=== PATIENT | male | born 1945 | race Caucasian/White ===

== ENCOUNTER 2016-02-28 12:12 | Outpatient (RCR) | payer MEDICARE, OTHER ==
--- OUTSIDE RECORDS SUMMARY | 2015-12-03 10:58 | XMS REPORT | Continuity of Care Document ---
Author Author [facility] Organization [facility] Address Unknown Phone Unavailable Care Team Providers Care Medical Records Supervisor Name Role Phone PCP Unavailable Source Comments Some departments are not documenting in the electronic medical record. If you do not see the information that you expected, contact Release of Information in the Health Information Management department at [phone] for further assistance in locating additional records.[facility] Active Allergies and Adverse Reactions Allergen Noted Date Severity Reactions Comments Xylocaine 02/19/2015 High SEIZURES Current Medications Prescription Sig. Disp. Refills Start End Date Status Date metFORMIN (GLUCOPHAGE) Take 1,000 mg by mouth Active 1,000 mg tablet twice daily with meals. lisinopril (PRINIVIL; Take 20 mg by mouth Active ZESTRIL) 20 mg tablet daily. acitretin (SORIATANE) 25 Take 25 mg by mouth daily Active mg cap with dinner. sitaGLIPtin (JANUVIA) 100 Take 100 mg by mouth Active mg tab tablet daily. glipiZIDE (GLUCOTROL) 5 Take 5 mg by mouth twice Active mg tablet daily with meals. DOCOSAHEXANOIC ACID/EPA Take by mouth. Active (FISH OIL PO) CALCIUM CARBONATE/VITAMIN Take by mouth. Active D3 (VITAMIN D-3 PO) PSYLLIUM SEED (WITH Take by mouth. Active SUGAR) (METAMUCIL PO) ASCORBATE CALCIUM Take by mouth. Active (VITAMIN C PO) Cyanocobalamin (VITAMIN Take by mouth. Active B-12) 2,000 mcg TbER naproxen (NAPROSYN) 250 Take 250 mg by mouth Active mg tablet twice daily with meals. Active Problems Problem Noted Date Tattoo 03/17/2015 Social History Tobacco Use Types Packs/Day Years Used Date Former Smoker Smokeless Tobacco: Never Used Last Filed Vital Signs Vital Sign Reading Time Taken Blood Pressure 145/95 03/17/2015 3:26 PM TYPESETTERS PRINTER Pulse 92 03/17/2015 3:26 PM TYPESETTER[employer] Temperature 36.8 C (98.2 F) 03/17/2015 3:26 PM TYPESETTERS PRINTER Respiratory Rate - - Height 1.803 m (5' 11") 03/17/2015 3:26 PM TYPESETTERS PRINTER Weight 83.915 kg (185 lb) 03/17/2015 3:26 PM TYPESETTERS PRINTER Body Mass Index 25.81 03/17/2015 3:26 PM TYPESETTERS PRINTER Oxygen Saturation - - Plan of Care Health Maintenance Due Date Last Done Comments Physical (Comprehensive) 1952 Exam Pertussis Vaccine 1958 Tetanus Vaccine 01/07/1964 Colorectal Cancer 1997 Screening Shingles Vaccine 2007 Prevnar/Pneumovax (#1) 01/07/2012 Influenza Vaccine 10/14/2015 Results from Last 3 Months Not on file
[~2016-02-28 12:12] MED LIST: ACIT25CA3 PO; ASCO10006 PO; ASPI-983 PO; CALC600T12 PO; CHOL10007 PO; CLOP75TA69 PO; CYAN25003 SL; GLIP5TAB13 PO; LISI1TAB8 PO; LOVA20TA2 PO; METF1000 PO; METO-352 PO; PSYL684P2 PO; SITA100T12 PO; ZINC50TA51 PO
== END 2016-03-02 | disposition home or self-care (01) ==
LOC: CR 12:12
PROVIDERS: ATTEND Internal Medicine Critical Care Medicine
DX: Z09 Encounter for follow-up examination after completed treatment for conditions other than malignant neoplasm (principal); Z95.1 Presence of aortocoronary bypass graft
CPT/HCPCS: 93798

== ENCOUNTER 2016-03-27 11:30 | Outpatient (RCR) | payer MEDICARE, OTHER ==
--- OUTSIDE RECORDS SUMMARY | 2016-03-03 13:51 | XMS REPORT | Continuity of Care Document ---
Author Author [facility] Organization [facility] Address Unknown Phone Unavailable Care Team Providers Care Staffing Associate Name Role Phone PCP Unavailable Source Comments Some departments are not documenting in the electronic medical record. If you do not see the information that you expected, contact Release of Information in the Health Information Management department at [phone] for further assistance in locating additional records.[facility] Active Allergies and Adverse Reactions Allergen Noted [...] Active mg tablet twice daily with meals. atorvastatin (LIPITOR) 40 Take 40 mg by mouth Active mg tablet daily. metoprolol XL (TOPROL XL) Take 25 mg by mouth Active 25 mg extended release daily. tablet Active Problems Problem Noted Date Tattoo 03/17/2015 Most Recent Encounters Date Type Specialty Providers Description 12/22/2015 Office Visit Dermatology Joanna Rogel MD [place] (actinic keratosis) (Primary Dx); Palmoplantar keratoderma; Seborrheic keratoses; Multiple benign nevi; Tanning bed exposure, sequela Social History Tobacco Use Types Packs/Day Years Used Date Former Smoker Smokeless Tobacco: Never Used Alcohol Use Drinks/Week oz/Week Comments Yes 0 Standard 0.0 drinks or equivalent Last Filed Vital Signs Vital Sign Reading Time Taken Blood Pressure 145/95 03/17/2015 3:26 PM [employer] LO[employer] EXP[employer]ER Pulse 92 03/17/2015 3:26 PM [employer] LO[employer] EXP[employer]ER Temperature 36.8 C (98.2 F) 03/17/2015 3:26 PM [employer] LO[employer] EXP[employer]ER Respiratory Rate - - Height 1.803 m (5' 11") 12/22/2015 2:40 PM [employer] LO[employer] EXPEDITER Weight 88.089 kg (194 lb 3.2 oz) 12/22/2015 2:40 PM [employer] LO[employer] EXPEDITER Body Mass Index 27.1 12/22/2015 2:40 PM [employer]ORT LO[employer] EXPEDITER Oxygen Saturation - - Plan of Care Health Maintenance Due Date Last Done Comments Hepatitis C Screening 1945 Physical (Comprehensive) 1954 Exam Pertussis Vaccine 1958 Tetanus Vaccine 01/07/1964 Colorectal Cancer 1997 Screening Shingles Vaccine 2007 Prevnar/Pneumovax (#1) 01/07/2012 Influenza Vaccine 10/14/2015 Results from Last 3 Months SKIN LESION DESTRUCTION (12/22/2015 3:05 PM)
== END 2016-05-31 12:16 | disposition home or self-care (01) ==
LOC: CR 11:30
PROVIDERS: ATTEND Internal Medicine Critical Care Medicine
DX: Z48.812 Encounter for surgical aftercare following surgery on the circulatory system (principal); Z95.1 Presence of aortocoronary bypass graft
CPT/HCPCS: 93798

== ENCOUNTER → 2016-10-17 | Outpatient (CLI) | payer MEDICARE, OTHER ==
[~2016-10-17] VITALS: Ht 180.3 cm; Wt 91.2 kg
[~2016-10-17] MED LIST changes: +CATHETER FLUSH 10 ML SYR IV PRN; +REGADENOSON 0.4 MG/5 ML SYR (LEXISCAN) IV ONE
[2016-10-17 13:03] VITALS: BP 182/102
== END ==
LOC: CARD 11:09
PROVIDERS: ATTEND Internal Medicine Cardiovascular Disease
DX: I25.10 Atherosclerotic heart disease of native coronary artery without angina pectoris (principal); R07.89 Other chest pain; I65.23 Occlusion and stenosis of bilateral carotid arteries; E11.9 Type 2 diabetes mellitus without complications; E78.4 Other hyperlipidemia; Z87.891 Personal history of nicotine dependence; Z86.73 Personal history of transient ischemic attack (TIA), and cerebral infarction without residual deficits
CPT/HCPCS: 78452; 93017

== ENCOUNTER 2018-06-16 12:20 | Emergency (ER) | payer MEDICARE, OTHER ==
[~2018-06-16] VITALS: Ht 177.8 cm; Wt 87.1 kg
[~2018-06-16 12:20] MED LIST changes: -CATHETER FLUSH 10 ML SYR IV PRN; +METF-399 PO; -METF1000 PO; -REGADENOSON 0.4 MG/5 ML SYR (LEXISCAN) IV ONE
--- NOTE | 2018-06-16 12:54 | ED Lower Extremity ---
General Chief Complaint: Lower Extremity Stated Complaint: R KNEE INJ Nursing Triage Note: PT TO [facility] PER W/C PT CO OF TWISTING L KNEE YESTERDAY, TODAY IS VERY PAINFUL. HAS HX OF ORTHO SURG ON LEG Nursing Sepsis Screen: No Definite Risk Source: patient Exam Limitations: no limitations History of Present Illness Date Seen by Provider: June 16, 2018 Time Seen by Provider: 12:52 Initial Comments To ER per private vehicle with reports of twisting his right knee yesterday. 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 Prior injury to the right knee and involving comminuted fracture in the 1970s. He got some chronic swelling to the right lower extremity. This occurred yesterday, he was able to immediately get up and resumed painting. He's had no instability of the knee but does have sensation of pain in the knee when standing and bearing weight. He is able to flex and extend the knee. He denies any numbness or tingling to the foot or any area distal to the knee. Onset: yesterday Severity: moderate Pain/Injury Location: right knee Method of Injury: fell, twisted Modifying Factors: Worse With Movement Allergies and Home Medications Allergies Coded Allergies: lidocaine (Unverified Allergy, Unknown, 05/29/13) Home Medications Acitretin 25 Mg Capsule, 25 MG PO DAILY, (Reported) Ascorbic Acid 1,000 Mg Tablet, 1,000 MG PO DAILY, (Reported) Aspirin 81 Mg Tablet.dr, 81 MG PO DAILY, (Reported) Calcium Carbonate 600 Mg Tablet, 1,200 MG PO DAILY, (Reported) Cholecalciferol (Vitamin D3) 1,000 Unit Capsule, 1,000 UNIT PO DAILY, (Reported) Clopidogrel Bisulfate 75 Mg Tablet, 75 MG PO DAILY, (Reported) Cyanocobalamin (Vitamin B-12) 2,500 Mcg Tab.subl, 2,500 MCG SL DAILY, (Reported) Glipizide 5 Mg Tablet, 10 MG PO BID, (Reported) TAKES 2 (5MG) TABLETS Lisinopril/Hydrochlorothiazide 1 Each Tablet, 1 TAB PO BID, (Reported) Lovastatin 20 Mg Tablet, 20 MG PO DAILY, (Reported) Metformin HCl 1,000 Mg Tablet, 1,000 MG PO BID, (Reported) Metformin HCl 1,000 Mg Tablet, 500 MG PO 1200, (Reported) Metoprolol Succinate 50 Mg Tab.er.24h, 50 MG PO DAILY, (Reported) Psyllium Husk/Aspartame 432 Gm Powder, 1 TBS PO DAILY, (Reported) Sitagliptin Phosphate 100 Mg Tablet, 100 MG PO DAILY, (Reported) Zinc Amino Acid Chelate 50 Mg Tablet, 50 MG PO DAILY, (Reported) Patient Home Medication List Home Medication List Reviewed: Yes Review of Systems Constitutional: see HPI; No chills, No fever EENTM: see HPI Respiratory: no symptoms reported Cardiovascular: no symptoms reported Genitourinary: no symptoms reported Musculoskeletal: no symptoms reported Skin: no symptoms reported Psychiatric/Neurological: No Symptoms Reported Past Gzptxlr-Xpvngc-Ksgoqt Hx Patient Social History Alcohol Use: Regular Use Number of Drinks Today: 1 Alcohol Beverage of Choice: Wine Recreational Drug Use: No Smoking Status: Never a Smoker Recent Foreign Travel: No Contact w/Someone Who Travel: No Recent Infectious Disease Expo: No Recent Hopitalizations: No Past Medical History Cardiac, Coronary Stent, Joint Replacement, Orthopedic Respiratory: No Cardiac: Yes Hypertension Neurological: No Genitourinary: No Gastrointestinal: No Musculoskeletal: Yes Arthritis Endocrine: Yes Diabetes, Non-Insulin dep Cancer: No Psychosocial: No Integumentary: No Physical Exam Vital Signs Vital Signs - First Documented 06/16/18 12:25 Temp 97.7 Pulse 73 Resp 18 B/P (MAP) 146/77 (100) Pulse Ox 96 Capillary Refill : Less Than 3 Seconds Height, Weight, BMI Height: 5'10.00" Weight: 192lbs. 0.0oz. 87.622263ho; 28.0 BMI Method:Stated General Appearance: WD/WN, no apparent distress HEENT: PERRL/EOMI, normal ENT inspection Respiratory: no respiratory distress, no accessory muscle use Hips: bilateral hip non-tender, bilateral hip normal inspection, bilateral hip normal range of motion Legs: bilateral leg non-tender, bilateral leg normal inspection, bilateral leg normal range of motion Knees: right knee other (he is able to flex and extend the knee. There is an obvious joint effusion. There is no obvious knee joint instability. The Ran' s test and posterior drawer test are negative. There is no instability with varus or valgus stress applied to the knee either.) Ankles: bilateral ankle non-tender, bilateral ankle normal inspection, bilateral ankle normal range of motion Feet: bilateral foot non-tender, bilateral foot normal inspection, bilateral foot normal range of motion Neurologic/Psychiatric: alert, normal mood/affect, oriented x 3 Skin: normal color, warm/dry Procedures/Interventions Additional Procedures: Arthrocentesis Aspirating Progress The right knee has a large effusion. He is allergic to lidocaine so the overlying skin about 2 cm superior and lateral to the superior and lateral border of the patella was anesthetized with 25 mg of lidocaine in 1 mL of normal saline. We used 0.5 mL of this. This achieved good anesthesia the skin. Skin was then swabbed with Betadine over this region which was allowed to dry. An 18-gauge 1/2 inch needle was then inserted and a total of 65 mL of blood was aspirated. He reports immediate improvement but not complete resolution of pain. He follows with Dr. Marte in [place]. I discussed with him that he will need to use crutches which ER he has at home, Tylenol and Motrin, weightbearing as tolerated and follow-up with Dr. Marte to schedule an MRI of the knee given this significant hemarthrosis. Progress/Results/Core Measures Results/Orders My Orders Orders - ISRA THAKKAR APRN Knee, Right, 3 Views (06/16/18 12:42) Diphenhydramine Injection (Benadryl Inje (06/16/18 13:01) Medications Given in ED Current Medications Medications Dose Ordered Sig/Favio Route Start Time Stop Time Status Last Admin Dose Admin Diphenhydramine HCl 50 mg STK-MED ONCE .ROUTE 06/16/18 13:01 06/16/18 13:04 DC 06/16/18 13:05 25 MG Vital Signs/I&O 06/16/18 12:25 Temp 97.7 Pulse 73 Resp 18 B/P (MAP) 146/77 (100) Pulse Ox 96 Blood Pressure Mean: 100 Diagnostic Imaging Diagonstic Imaging: Xray Comments NAME: CESARMIKE Kaci MED REC#: [id number] PT STATUS: REG ER : 1945 PHYSICIAN: ISRA THAKKAR APRN ADMIT DATE: 06/16/18/ER Draft Date of Exam:06/16/18 KNEE, RIGHT, 3 VIEWS PATIENT HISTORY: Right knee injury. TECHNIQUE: Three views of the right knee. COMPARISON: None. FINDINGS: There is diffuse osteopenia. There are advanced degenerative changes in the right knee. There is a large right knee joint effusion. There is deformity of the proximal fibula from remote healed fracture. IMPRESSION: Advanced degenerative changes in the right knee with a large right knee joint effusion. Dictated on workstation # [id number] Dict: 06/16/18 1301 Trans: 06/16/18 1307 [id number] Interpreted by: VICTORIANO NAVA MD Electronically signed by: Departure Impression Primary Impression: Hemarthrosis involving knee joint Qualified Codes: M25.061 - Hemarthrosis, right knee Disposition: 01 HOME, SELF-CARE Condition: Stable Departure-Patient Inst. Decision time for Depature: 13:27 Referrals: MARIBEL MARTE MD (PCP/Family) Primary Care Physician Patient Instructions: Hemarthrosis Add. Discharge Instructions: 1. Wear the Sawyer wrap to the knee at all times except when showering for the next 2-3 days. Tylenol and ibuprofen for pain control. Ice pack to the knee 30 minutes every 1-2 hours for the next day or so. Use crutches when walking to limit the amount of weight put on the right knee. Call Dr. MARTE tomorrow to schedule follow-up and discuss obtaining an MRI of the knee. All discharge instructions reviewed with patient and/or family. Voiced understanding. Copy Copies To 1: MARIBEL MARTE MD, PETER J APRN June 16, 2018 12:54
[2018-06-16] MEDS ORDERED: diphenhydrAMINE 50 MG/ML INJ (BENADRYL) ONE (13:01)
--- NOTE | 2018-06-16 13:05 | NUR ---
JOINT ASPIRATION L KNEE APPROX 60CC BLOODY FLUID REMOVED
--- NOTE | 2018-06-16 13:08 | Diagnostic Imaging Report ---
PATIENT HISTORY: Right knee injury. TECHNIQUE: Three views of the right knee. COMPARISON: None. FINDINGS: There is diffuse osteopenia. There are advanced degenerative changes in the right knee. There is a large right knee joint effusion. There is deformity of the proximal fibula from remote healed fracture. IMPRESSION: Advanced degenerative changes in the right knee with a large right knee joint effusion. Dictated by: Dictated on workstation # [id number]
[2018-06-16 13:43] VITALS: BP 146/77
== END 2018-06-16 13:43 | disposition home or self-care (01) ==
LOC: EDUNIT# 12:20 → ER 12:21
DX: M25.061 Hemarthrosis, right knee (principal); I10 Essential (primary) hypertension; E11.9 Type 2 diabetes mellitus without complications; Z88.4 Allergy status to anesthetic agent; Z79.4 Long term (current) use of insulin; Z79.82 Long term (current) use of aspirin; Z95.5 Presence of coronary angioplasty implant and graft; X50.1XXA Overexertion from prolonged static or awkward postures, initial encounter
CPT/HCPCS: 73562; 87070; 87205; 96372

== ENCOUNTER → 2020-10-26 | Outpatient (CLI) | payer MEDICARE, OTHER ==
[~2020-10-26] MED LIST changes: +ASCO100024 PO; -ASCO10006 PO; +ASPI-1238 PO; -ASPI-983 PO; -CALC600T12 PO; +CALC600T91 PO; +LISI1TAB46 PO; -LISI1TAB8 PO; +REGADENOSON 0.4 MG/5 ML SYR (LEXISCAN) IV ONE
[2020-10-26] MEDS: CATHETER FLUSH 10 ML SYR IV PRN ×2 (11:28→12:52)
[2020-10-26 12:51] VITALS: BP 137/81
--- NOTE | 2020-10-26 14:47 | STRESS TEST ---
DATE OF SERVICE: 10/26/2020 RESTING AND POST REGADENOSON TECHNETIUM-99M TETROFOSMIN SPECT CT IMAGING ORDERING PHYSICIAN: Dr. Thompson. PRIMARY PHYSICIAN: Dr. Hurtado. CLINICAL DIAGNOSES: Coronary artery disease. Baseline images were carried out after injection of 9.85 mCi of technetium-99m Tetrofosmin. This was followed by 0.4 mg regadenoson and 31.8 mCi of technetium-99m Tetrofosmin for stress imaging. The electrocardiogram showed sinus rhythm at baseline. It did not change significantly with the regadenoson infusion. The patient tolerated the procedure well. Review of images at rest and following stress does not indicate any distinct perfusion defects consistent with significant myocardial ischemia or infarction. Some degree of apical thinning is seen both at rest and following regadenoson infusion. Gated images show normal global left ventricular systolic function with normal regional wall motion, including the left ventricular apex. Left ventricular ejection fraction is calculated to be 78%. CONCLUSIONS: 1. No evidence of any significant myocardial ischemia or infarction on this study. 2. Normal regional wall motion. 3. Normal global left ventricular systolic function with a calculated ejection fraction of 78%. Job ID: [id number] DocumentID: [id number] Dictated Date: 10/26/2020 14:36:29 Mercerizing Range Controller Date: 10/26/2020 14:46:01 Dictated By: HAWA THOMPSON MD, MA, FACP, FACC,
== END ==
LOC: CARD 11:30
PROVIDERS: ATTEND Internal Medicine Cardiovascular Disease
DX: I25.10 Atherosclerotic heart disease of native coronary artery without angina pectoris (principal)
CPT/HCPCS: 78452; 93017; A9502